=== PATIENT | female | born 1955 | race Caucasian/White ===

== ENCOUNTER → 2017-09-15 | Outpatient (CLI) | payer MEDICARE, BC ==
--- NOTE | 2017-09-15 11:04 | CT ---
EXAMINATION TYPE: CT chest w con DATE OF EXAM: 09/15/2017 COMPARISON: NONE HISTORY: COPD CT DLP: 964.3 mGycm Automated exposure control for dose reduction was used. CONTRAST: CT scan of the chest is performed with IV Contrast, patient injected with 100 mL of Omnipaque 300. FINDINGS: LUNGS: The lungs are grossly clear, there is no concerning parenchymal mass or nodule identified. T here is no pleural effusion or pneumothorax seen. The tracheobronchial tree is patent. MEDIASTINUM: There are no greater than 1 cm hilar or mediastinal lymph nodes. No pericardial effusi on is seen. Thoracic aorta is of normal caliber. The heart is not enlarged. UPPER ABDOMEN: Calcification right adrenal gland mild adrenal gland thickening and nodularity seen bi laterally without mass. Bilateral low attenuating renal lesions. OTHER: No additional significant abnormality is seen. IMPRESSION: 1. No significant abnormality to account for the patient's symptoms.
== END | disposition home or self-care (01) ==
LOC: RADCTMAIN 09:18
PROVIDERS: ATTEND Internal Medicine Critical Care Medicine
DX: J44.9 Chronic obstructive pulmonary disease, unspecified (principal)
CPT/HCPCS: 71260; Q9967

== ENCOUNTER 2018-09-15 09:28 | Emergency (ER) | payer MEDICARE, BC ==
[2018-09-15] MEDS ORDERED: SODIUM CHLORIDE 0.9% 1,000 ML IV STA (09:54)
[2018-09-15] MEDS ORDERED: KETOROLAC 30 MG/ML 1 ML VIAL IVP STA (09:54)
[2018-09-15] MEDS ORDERED: ONDANSETRON 4 MG/2 ML VIAL IVP STA (09:54)
[2018-09-15 10:53] LABS: Basophils # (A) 0.1 k/uL (0-0.2); Basophils % (A) 1 %; Eosinophils # (A) 0.3 k/uL (0-0.7); Eosinophils % (A) 4 %; HCT 39.8 % (34.0-46.0); HGB 12.5 gm/dL (11.4-16.0); Lymphocytes # (A) 1.3 k/uL (1.0-4.8); Lymphocytes % (A) 16 %; MCHC 31.5 g/dL (31.0-37.0); MCV 85.8 fL (80.0-100.0); Mean Platelet Volume 7.1; Monocytes # (A) 0.5 k/uL (0-1.0); Monocytes % (A) 5 %; Neutrophils % (A) 72 %; Platelet Count 366 k/uL (150-450); RBC 4.63 m/uL (3.80-5.40); RDW 14.3 % (11.5-15.5); WBC 8.4 k/uL (3.8-10.6)
--- NOTE | 2018-09-15 10:54 | XR ---
EXAMINATION TYPE: XR KUB DATE OF EXAM: 09/15/2018 10:50 AM CLINICAL HISTORY: Left flank pain TECHNIQUE: Single upright image of the abdomen is obtained. COMPARISON: None. FINDINGS: Scattered gas is seen in non-distended small bowel loops. Gas and fecal material is seen in non-distended colon. There is no visceromegaly, pneumoperitoneum, or abnormal calcification apprecia evan. The lung bases are clear and the osseous structures are intact. S-shaped scoliotic curvature is seen of the visualized portions of the thoracolumbar spine. IMPRESSION: Nonobstructive bowel gas pattern.
[2018-09-15 11:00] LABS: Appearance,Urine Clear (Clear); Bilirubin,Urine Negative (Negative); Blood,Urine Negative (Negative); Color,Urine Yellow; Glucose,Urine (UA) Negative (Negative); Ketones,Urine Negative (Negative); Leukocyte Esterase,Urine Moderate (Negative); Mucus,Urine Rare /hpf; Nitrite,Urine Negative (Negative); Protein,Urine Negative (Negative); RBC,Urine 1 /hpf (0-5); Specific Gravity,Urine 1.013 (1.001-1.035); Squamous Epithelial Cell,Urine 4 /hpf (0-4); Urobilinogen,Urine <2.0 mg/dL (<2.0); WBC,Urine 8 /hpf (0-5)
--- NOTE | 2018-09-15 11:03 | CT ---
EXAMINATION TYPE: CT abdomen pelvis wo con DATE OF EXAM: 09/15/2018 COMPARISON: CT chest 09/15/2018 HISTORY: Lt flank pain CT DLP: 992.8 mGycm Automated exposure control for dose reduction was used. TECHNIQUE: Helical acquisition of images was performed from the lung bases through the pelvis. FINDINGS: LUNG BASES: Subsegmental consolidation involving the lung bases most typical of atelectasis and stabl e from previous CT scan of the chest. LIVER/GB: No significant abnormality is appreciated. PANCREAS: No significant abnormality is seen. SPLEEN: No significant abnormality is seen. ADRENALS: Stable thickening and calcification of the right adrenal gland. Mild nodularity of the lowe r portion of the left adrenal gland with thickening is stable. KIDNEYS: There are multiple hypodensities extending off the kidneys the largest on the left measures approximately 3 cm. Approximately 25 Hounsfield units is not compatible simple cyst. However, previou s ultrasound demonstrates a similar lesion which did appear more compatible with cyst dated 6 and there is no interval change. ADENOPATHY: None visualized. OSSEOUS STRUCTURES: Degenerative changes of the spine noted. BOWEL: Retained fecal debris throughout the colon.. OTHER: Atherosclerotic change of the aorta but no evidence of aneurysm. IMPRESSION: 1. No renal stone or hydronephrosis. Bilateral indeterminate renal lesions by noncontrast CT. Finding s may been the basis of simple cysts although the larger lesion in the left measures 25 Hounsfield un its. Review of a previous ultrasound 07/03/2016 demonstrates stable size and this may represent a com plicated cyst given is stable in size from the ultrasound 2016. Correlate with MRI on short-term basi s for confirmation as clinically warranted. 2. Stable bilateral adrenal gland nodularity and thickening unchanged from the previous CT scan of e chest.
[2018-09-15] MEDS ORDERED: methylPREDNISolone SOD SUCCI 125 MG/2 ML VIAL IV STA (11:04)
[2018-09-15 11:06] LABS: Albumin 4.4 g/dL (3.5-5.0); Calcium 9.9 mg/dL (8.4-10.2); Potassium 4.9 mmol/L (3.5-5.1); Total Bilirubin 0.6 mg/dL (0.2-1.3); Total Protein 8.1 g/dL (6.3-8.2)
--- NOTE | 2018-09-15 11:20 | ED ---
General Adult HPI - General Chief complaint: Back Pain/Injury Stated complaint: back pain Time Seen by Provider: 09/15/18 09:45 Source: patient, RN notes reviewed Mode of arrival: wheelchair Limitations: no limitations - History of Present Illness Initial comments: 63 year old female presents to the emergency department for a chief complaint of left-sided back pain. Patient states this started 3 days ago. She states it is in her left lower back radiates into her buttock or thigh in her groin. This hurts more when she stands. Patient does have a history of a herniated disc. She denies saddle anesthesia or bladder or bowel changes. Denies numbness in the left lower extremity. Patient denies any injuries. Patient has no other complaints at this time including shortness of breath, chest pain, abdominal pain, nausea or vomiting, headache, or visual changes. - Related Data Home Medications Medication Instructions Recorded Confirmed Atorvastatin [Lipitor] 80 mg PO PC-SUPPER 07/14/15 09/15/18 Budesonide-Formot 160-4.5 Mcg 2 puff INHALATION RT-BID 07/14/15 09/15/18 [Symbicort 160-4.5 Mcg Inhaler] Diazepam [Valium] 5 mg PO DAILY PRN 07/14/15 09/15/18 Hydrochlorothiazide [Hydrodiuril] 50 mg PO DAILY 07/14/15 09/15/18 Pramipexole [Mirapex] 0.5 mg PO BID 07/14/15 09/15/18 Albuterol Inhaler [Ventolin Hfa 1 - 2 puff INHALATION RT-Q6H PRN 09/15/18 09/15/18 Inhaler] Ergocalciferol (Vitamin D2) 50,000 unit PO VAZQUEZ 09/15/18 09/15/18 [Vitamin D2] PARoxetine HCL [Paxil] 40 mg PO DAILY 09/15/18 09/15/18 Tiotropium [place] [Spiriva 2 spray INHALATION RT-DAILY@1200 09/15/18 09/15/18 Respimat] amLODIPine BESYLATE/BENAZEPRIL 1 cap PO DAILY 09/15/18 09/15/18 [Lotrel 10-40 MG] Previous Rx's Medication Instructions Recorded predniSONE 50 mg PO DAILY #5 tablet 09/15/18 Allergies Allergy/AdvReac Type Severity Reaction Status Date / Time No Known Allergies Allergy Verified 09/15/18 09:57 Review of Systems ROS Statement: Those systems with pertinent positive or pertinent negative responses have been documented in the HPI. ROS Other: All systems not noted in ROS Statement are negative. Past Medical History Past Medical History: COPD, Hyperlipidemia, Hypertension History of Any Multi-Drug Resistant Organisms: None Reported Past Surgical History: Cholecystectomy, Joint Replacement, Orthopedic Surgery Additional Past Surgical History / Comment(s): bilateral knee, right wrist Past Psychological History: Depression Smoking Status: Current every day smoker Past Alcohol Use History: None Reported Past Drug Use History: None Reported General Exam Limitations: no limitations General appearance: alert, in no apparent distress Head exam: Present: atraumatic, normocephalic, normal inspection Eye exam: Present: normal appearance, PERRL, EOMI. Absent: scleral icterus, conjunctival injection, periorbital swelling ENT exam: Present: normal exam, mucous membranes moist Neck exam: Present: normal inspection, full ROM. Absent: tenderness, meningismus, lymphadenopathy Respiratory exam: Present: normal lung sounds bilaterally. Absent: respiratory distress, wheezes, rales, rhonchi, stridor Cardiovascular Exam: Present: regular rate, normal rhythm, normal heart sounds. Absent: systolic murmur, diastolic murmur, rubs, gallop, clicks GI/Abdominal exam: Present: soft, normal bowel sounds. Absent: distended, tenderness, guarding, rebound, rigid Extremities exam: Present: normal capillary refill (cap refill < 2 seconds, DP pulse 2+ in BLE). Absent: calf tenderness Back exam: Present: tenderness (tenderness over SI joint as wlel as left sciatic notch), other (sensation intact throughout LLE). Absent: full ROM (pain with full extension and flexion greater rima 30 degrees), CVA tenderness (R), CVA tenderness (L) Neurological exam: Present: alert, oriented X3, CN II-XII intact, normal gait Psychiatric exam: Present: normal affect, normal mood Course Vital Signs 09/15/18 09:32 Temperature 98.1 F Pulse Rate 90 Respiratory 16 Rate Blood Pressure 132/68 O2 Sat by Pulse 95 Oximetry Medical Decision Making - Medical Decision Making 63-year-old female presents to the emergency department for a chief complaint of left lower back pain radiating into the thigh and groin. Patient denies fevers or chills. Denies saddle anesthesia, leg weakness, bladder or bowel changes. Patient is concerned about kidney stones. She states pain is worsened with m ovement. I do suspect this is musculoskeletal in nature. CBC CMP unremarkable. Urine will be cultured. CT shows no renal stone or hydronephrosis. There is bilateral indeterminate renal lesions by noncontrast CT. May be simple cyst although larger lesion in the left kidney measures 25 Hounsfield units. Previous ultrasound did demonstrate a stable size which may represent a compensated cyst. However patient will follow-up with her primary care for this finding. Patient is likely having sciatic pain at this time. Patient is feeling much better after Toradol and Solu-Medrol. Will be given steroids. Will follow up with primary care in 1-2 days as well as orthopedics. - Lab Data Result diagrams: 09/15/18 10:19 09/15/18 10: Lab Results 09/15/18 09/15/18 09/15/18 Range/Units 10:19 10: 10:19 WBC 8.4 (3.8-10.6) k/uL RBC 4.63 (3.80-5.40) m/uL Hgb 12.5 (11.4-16.0) gm/dL Hct 39.8 (34.0-46.0) % MCV 85.8 (80.0-100.0) fL MCH 27.0 (25.0-35.0) pg MCHC 31.5 (31.0-37.0) g/dL RDW 14.3 (11.5-15.5) % Plt Count 366 (150-450) k/uL Neutrophils % 72 % Lymphocytes % 16 % Monocytes % 5 % Eosinophils % 4 % Basophils % 1 % Neutrophils # 6.0 (1.3-7.7) k/uL Lymphocytes # 1.3 (1.0-4.8) k/uL Monocytes # 0.5 (0-1.0) k/uL Eosinophils # 0.3 (0-0.7) k/uL Basophils # 0.1 (0-0.2) k/uL Sodium 137 (137-145) mmol/L Potassium 4.9 (3.5-5.1) mmol/L Chloride 101 (98-107) mmol/L Carbon Dioxide 27 (22-30) mmol/L Anion Gap 9 mmol/L BUN 29 H (7-17) mg/dL Creatinine 1.04 (0.52-1.04) mg/dL Est GFR (CKD-EPI)AfAm 65 (>60 ml/min/1.73 sqM) Est GFR (CKD-EPI)NonAf 57 (>60 ml/min/1.73 sqM) Glucose 106 H (74-99) mg/dL Calcium 9.9 (8.4-10.2) mg/dL Total Bilirubin 0.6 (0.2-1.3) mg/dL AST 18 (14-36) U/L ALT 26 (9-52) U/L Alkaline Phosphatase 87 (38-126) U/L Total Protein 8.1 (6.3-8.2) g/dL Albumin 4.4 (3.5-5.0) g/dL Amylase 68 (30-110) U/L Lipase 183 (23-300) U/L Urine Color Yellow Urine Appearance Clear (Clear) Urine pH 6.0 (5.0-8.0) Ur Specific [place] 1.013 (1.001-1.035) Urine Protein Negative (Negative) Urine Glucose (UA) Negative (Negative) Urine Ketones Negative (Negative) Urine Blood Negative (Negative) Urine Nitrite Negative (Negative) Urine Bilirubin Negative (Negative) Urine Urobilinogen <2.0 (<2.0) mg/dL Ur Leukocyte Esterase Moderate H (Negative) Urine RBC 1 (0-5) /hpf Urine WBC 8 H (0-5) /hpf Ur Squamous Epith Cells 4 (0-4) /hpf Urine Mucus Rare H (None) /hpf Disposition Clinical Impression: Sciatica, Mechanical back pain Disposition: HOME SELF-CARE Condition: Good Instructions (If sedation given, give patient instructions): Acute Low Back Pain (ED) Additional Instructions: Please take Motrin and Tylenol for pain. Please take prednisone as directed. Please follow-up with primary care regarding CT results as well as orthopedics for back pain. Return here to the emergency department if you have any worsening symptoms. Prescriptions: predniSONE 50 mg PO DAILY #5 tablet Is patient prescribed a controlled substance at d/c from ED?: No Referrals: Sam Rodriguez DO [Primary Care Provider] - 1-2 days Natali Morel DO [Doctor of Osteopathic Medicine] - 1-2 days Time of Disposition: 11:29
[2018-09-15] MEDS ORDERED: HYDROcodone/APAP 5-325MG 1 EACH TAB PO STA (11:34)
[2018-09-15 11:49] VITALS: BP 139/76; PULSE 83; RESP 18; TEMP 97.7
== END 2018-09-15 11:54 | disposition home or self-care (01) ==
LOC: EC 09:28
DX: M54.32 Sciatica, left side (principal); J44.9 Chronic obstructive pulmonary disease, unspecified; E78.5 Hyperlipidemia, unspecified; I10 Essential (primary) hypertension; F32.9 Major depressive disorder, single episode, unspecified; F17.200 Nicotine dependence, unspecified, uncomplicated; Z90.49 Acquired absence of other specified parts of digestive tract; Z96.653 Presence of artificial knee joint, bilateral; Z98.890 Other specified postprocedural states; Z79.51 Long term (current) use of inhaled steroids; Z79.899 Other long term (current) drug therapy
CPT/HCPCS: 36415; 74018; 74176; 80053; 81001; 82150; 83690; 85025; 96361; 96374; 96375; 99284

== ENCOUNTER → 2018-10-20 | Outpatient (CLI) | payer MEDICARE, BC ==
--- NOTE | 2018-10-20 16:12 | US ---
EXAMINATION TYPE: US kidneys/renal and bladder DATE OF EXAM: 10/20/2018 COMPARISON: US, CT CLINICAL HISTORY: complex renal cyst, N28.1. Complex renal cyst. EXAM MEASUREMENTS: Right Kidney: 10.5 x 6.2 x 4.7 cm Left Kidney: 11.6 x 5.6 x 6.0 cm Post Void Residual Volume: Not performed Right Kidney: Anechoic areas seen. Largest lateral/inferior measures: 2.4 x 2.5 x 2.3 cm. Slightly hypoechoic area seen lateral/inferior measures: 1.1 x 1.0 x 1.1 cm. Left Kidney: Hypoechoic area seen lateral/inferior: 3.1 x 3.4 x 3.1 cm Bladder: Not fully distended. Appears anechoic. Bilateral Jets seen: Yes IMPRESSION: Bilateral simple appearing renal cysts
== END ==
LOC: RADUSWWP 09:55
PROVIDERS: ATTEND Family Medicine
DX: N28.1 Cyst of kidney, acquired (principal)
CPT/HCPCS: 76770

== ENCOUNTER → 2018-10-20 | Outpatient (CLI) | payer MEDICARE, BC ==
--- NOTE | 2018-10-20 22:11 | MR ---
EXAMINATION TYPE: MR lumbar spine wo con DATE OF EXAM: 10/20/2018 COMPARISON: None HISTORY: Low back pain, DDD CONTRAST: 0 mL intravenous Gadavist. TECHNIQUE: Multiplanar, multisequence images of the lumbar spine were acquired. FINDINGS: L5-S1: No significant disc bulge or disc herniation. No spinal canal stenosis. No foraminal stenosi s. L4-L5: Mild disc bulge is present. A very minimal grade 1 spondylolisthesis may be present with disc uncovering. Facet hypertrophy is present with mild posterior lateral thecal sac contact. No AP spinal canal stenosis is present. Neural foramen are patent. L3-L4: No significant disc bulge or disc herniation. No spinal canal stenosis. No foraminal stenosi s. Very minimal facet hypertrophy and ligamentum flavum laxity is present without significant posteri or lateral thecal sac compression L2-L3: There is a minimal left paracentral disc bulge which extends into the left foramen and far lef t lateral disc herniation. This has significant foraminal stenosis with effacement of the nerve root. Correlate with left L2 radicular symptoms. There appears to be disc material in contact with the exi ting nerve root. No spinal canal stenosis. Minimal facet degenerative changes are present. L1-L2: No significant disc bulge or disc herniation. No spinal canal stenosis. No foraminal stenosi s. T12-L1: There is a right paracentral disc bulge with mild to moderate anterior thecal sac compression . No cord contact is evident. Neural foramen are patent. IMPRESSION: 1. Broad far left lateral disc bulging with extension into the left foramen at L2-L3. Correlate with left L3 radicular symptoms. Severe foraminal stenosis is present. There may be some disc contact with in the thecal sac as well. 2. Right paracentral disc bulge T12-L1 with moderate anterior thecal sac contact. No stenosis or cord contact is evident. 3. Mild disc bulge and/or disc uncovering with a minimal grade 1 spondylolisthesis of L4 anterior and L5.
== END | disposition home or self-care (01) ==
LOC: RADMRIMAIN 19:06
PROVIDERS: ATTEND Family Medicine
DX: M48.061 Spinal stenosis, lumbar region without neurogenic claudication (principal); M51.26 Other intervertebral disc displacement, lumbar region; M51.25 Other intervertebral disc displacement, thoracolumbar region
CPT/HCPCS: 72148

== ENCOUNTER → 2019-06-08 | Outpatient (CLI) | payer MEDICARE, BC ==
--- NOTE | 2019-06-08 11:35 | MM ---
Reason for exam: additional evaluation requested from prior study. Last mammogram was performed 3 years and 11 months ago. History: Patient is postmenopausal. Family history of breast cancer in mother at age 72. Took hormonal contraceptives for 2 years beginning at age 17. Took estrogen for 1 year beginning at age 47. Physical Findings: Nurse did not find any significant physical abnormalities on exam. MG Diagnostic Mammo w CAD URSZULA Bilateral CC and MLO view(s) were taken. LM, LM with magnification, and CC with magnification view(s) were taken of the left breast. Prior study comparison: July 02, 2015, bilateral MG screening mammo w CAD. June 21, 2014, left breast MG diagnostic mammo LT w CAD. The breast tissue is heterogeneously dense. This may lower the sensitivity of mammography. There is a 4mm group of left upper inner quadrant calcifications 10cm from nipple that although was present in 2015 has slightly increased in number. On magnification views these appear heterogenous. Given these are only minimally increased from 2015, 6 month follow up will be performed to ensure no further increase. No suspicious abnormality on the right breast. These results were verbally communicated with the patient and result sheet given to the patient on 06/08/19. ASSESSMENT: Probably benign, BI-RAD 3 RECOMMENDATION: Follow-up diagnostic mammogram of the left breast in 6 months.
== END | disposition home or self-care (01) ==
LOC: RADMAMWWP 09:58
PROVIDERS: ATTEND Family Medicine
DX: R92.2 Inconclusive mammogram (principal)
CPT/HCPCS: 77066

== ENCOUNTER → 2020-09-05 | Outpatient (CLI) | payer MEDICARE, BC ==
--- NOTE | 2020-09-05 16:04 | CT ---
EXAMINATION TYPE: CT brain w con DATE OF EXAM: 09/05/2020 COMPARISON: 07/04/2016 INDICATION: Follow up for arachnoid cyst. DLP: 1183.2 mGycm, Automated exposure control for dose reduction was used. CONTRAST: [address] of the brain is performed utilizing 3 mm thick sections through the posterior fossa and 3 mm thick sections through the remaining calvarium. Study is performed within 24 hours of arrival to the hosp [facility]. No abnormal hyperdensity is present to suggest an acute intracranial hemorrhage. No mass lesion is evident. Small arachnoid cyst anterior left cranial fossa. Current measurement is e stimated at 2.3 x 1.4 cm similar to prior exam. No acute infarcts are evident. Ventricles and sulci are appropriate for the patient age. Paranasal sinuses and mastoid air cells within the [id number] are clear. No abnormal enhancement is evident. IMPRESSIONS: 1. Stable neurocranial fossa arachnoid cyst 2. No acute intracranial process.
== END ==
LOC: RADCTMAIN 12:32
PROVIDERS: ATTEND Emergency Medicine
DX: I12.9 Hypertensive chronic kidney disease with stage 1 through stage 4 chronic kidney disease, or unspecified chronic kidney disease (principal); G93.0 Cerebral cysts
CPT/HCPCS: 82565; 84520; 70460; 36415; Q9967